=== PATIENT | male | born 1985 | race Asian ===

== ENCOUNTER 2019-05-04 17:37 | Emergency (ER) | payer OTHER ==
[~2019-05-04] VITALS: Ht 167.6 cm; Wt 62.6 kg
--- NOTE | 2019-05-04 17:50 | NUR ---
RASH STARTED THIS AM. TOOK BENDADRYL. DENIES ALLERGIES. STATES HE WENT OUT FOR DINNER AND DRINKS LAST NIGHT. RASH COVERS ANTERIOR AND POSTERIOR TORSO, SPREADS TO ARMS AND LEGS. STATES WORSE THAN THIS AM. PT PLACED ON MONITOR, MADE COMFORTABLE, FRIENDS AT BEDSIDE. SEEN BY BALAJI LAI. AWAITING ORDERS.
[2019-05-04] MEDS ORDERED: EPINEPHRINE (1:1000) 1 MG/ML AMPUL ONE (17:55)
[2019-05-04] MEDS ORDERED: diphenhydrAMINE HCL 50 MG/ML VIAL ONE (17:56)
[2019-05-04] MEDS ORDERED: methylPREDNISolone SOD SUCC 125 MG/2ML VIAL ONE (17:56)
[2019-05-04] MEDS ORDERED: FAMOTIDINE/PF INJ 20 MG/2 ML VIAL IV ONE ×2 (17:56→18:00)
[2019-05-04] MEDS ORDERED: EPINEPHRINE (1:1000) MDV 30 MG/30ML VIAL SUBCUT ONE (18:00)
[2019-05-04] MEDS ORDERED: diphenhydrAMINE HCL 50 MG/ML VIAL IV ONE (18:00)
[2019-05-04] MEDS ORDERED: methylPREDNISolone SOD SUCC 125 MG/2ML VIAL IV ONE (18:00)
--- NOTE | 2019-05-04 18:20 | NUR ---
IV LINE ESTABLISHED, MEDS GIVEN. WILL CONT TO OBSERVE.
--- NOTE | 2019-05-04 19:24 | NUR ---
Patient is resting comfortably in bed with eyes closed. Easily aroused. VSS
[2019-05-04] MEDS ORDERED: LORAZEPAM 0.5 MG TABLET ONE (19:59)
[2019-05-04] MEDS ORDERED: LORAZEPAM 0.5 MG TABLET PO ONE (20:00)
[2019-05-04 20:07] VITALS: BP 131/82
--- NOTE | 2019-05-04 20:07 | NUR ---
IV removed. Catheter intact and site benign. Pressure and 4x4 applied to site. No bleeding noted.Patient discharged to home in stable condition. Written and verbal after care instructions given. Patient verbalizes understanding of instruction.
== END 2019-05-04 20:08 | disposition home or self-care (01) ==
LOC: ER 17:39
DX: T78.40XA Allergy, unspecified, initial encounter (principal); Z60.2 Problems related to living alone; X58.XXXA Exposure to other specified factors, initial encounter
CPT/HCPCS: 87070; 87880; 96372; 96374; 96375; 99283; J0171 ×2; J1200; J2930; J3490; 86403-TC